=== PATIENT | female | born 1990 | race Caucasian/White ===

== ENCOUNTER 2020-05-04 18:53 | Emergency (ER) | payer OTHER ==
--- NOTE | 2020-05-04 19:12 | RAD ---
Right ankle 3 views HISTORY: Injury. FINDINGS: Ankle mortise and talar dome are intact. No acute fracture or dislocation. No aggressive osseous erosions. IMPRESSION : No abnormalities are demonstrated.
--- NOTE | 2020-05-04 19:20 | RAD ---
Right foot 3 views HISTORY: Injury. FINDINGS: Lisfranc joint alignment is anatomic. Pes planus on the lateral view. An oblique, curved lucency extends from the lateral articular surface of the distal talus to the medi al nonarticular margin. Minimal displacement and intra-articular gap. IMPRESSION : Talar head fracture with intra-articular extension.
[2020-05-04] MEDS ORDERED: Ketorolac Tromethamine 60 MG/2 ML VIAL ONE (19:28)
== END 2020-05-04 19:43 | disposition home or self-care (01) ==
LOC: NAV ERS 18:53
DX: S92.121A Displaced fracture of body of right talus, initial encounter for closed fracture (principal); Z79.899 Other long term (current) drug therapy; W11.XXXA Fall on and from ladder, initial encounter
CPT/HCPCS: 29515; 96372; J1885